=== PATIENT | female | born 1950 | race Caucasian/White ===

== ENCOUNTER → 2023-04-08 13:47 | Outpatient (CLI) | payer MEDICARE, SELFPAY ==
[2023-04-08 19:00] LABS: Basophils # 0.1 K/mm3 (0-0.2); Basophils % 0.5 % (0.1-2.0); Eosinophils # 0.2 K/mm3 (0.0-0.4); Eosinophils % 2.2 % (0.1-12.0); Hematocrit 43.3 % (37.0-47.0); Lymphocytes # 2.8 K/mm3 (0.7-4.5); Lymphocytes % 27.6 % (10-50); Mean Corpuscular HGB Conc 32.2 g/dL (31.8-35.4); Mean Corpuscular Hemoglobin 27.9 pg (27.0-31.2); Mean Corpuscular Volume 86.6 fl (81-99); Monocytes # 0.7 K/mm3 (0.1-1.0); Monocytes % 6.7 % (1.7-9.3); Neutrophils # 6.4 K/mm3 (1.8-7.8); Platelet Count 262 K/mm3 (142-424); Red Cell Distribution Width 13.4 % (11.5-17.5); White Blood Count 10.2 K/mm3 (4.8-10.8)
[2023-04-08 19:23] LABS: Alanine Aminotransferase 28 U/L (12-78); Albumin/Globulin Ratio 1.2 (1.1-1.8); Alkaline Phosphatase 87 U/L (38-126); Anion Gap 15.1 mEq/L (5-15); Aspartate Amino Transferase 30 U/L (14-36); Bilirubin,Total 0.4 mg/dl (0.2-1.3); Blood Urea Nitrogen 26 mg/dl (7-17); Calcium 9.1 mg/dl (8.4-10.2); Carbon Dioxide 25 mmol/L (22.0-30.0); Chloride 105 mmol/L (98-107); Estimated Glomerular Filt Rate 54 ml/min (>60); GFR (African American) 66 ML/MIN (>60); Globulin 3.4 g/dL (1.3-3.2); Glucose 139 mg/dl (74-100); Potassium 4.1 mmoL/L (3.5-5.1); Sodium 141 mmol/L (136-145); Total Protein,Serum 7.4 g/dl (6.3-8.2)
[2023-04-08 19:30] LABS: Hemoglobin A1C 6.7 % (4.0-6.0)
[2023-04-08 19:54] LABS: Thyroid Stimulating Hormone 1.39 uIU/mL (0.465-4.68)
== END ==
PROVIDERS: PCP Nurse Practitioner; Visit Provider Nurse Practitioner
DX: E11.9 Type 2 diabetes mellitus without complications (principal); F32.A Depression, unspecified; I10 Essential (primary) hypertension
CPT/HCPCS: 80053; 83036; 84443; 85025

== ENCOUNTER 2024-11-04 11:02 | Emergency (ER) | payer MEDICARE, SELFPAY ==
[2024-11-04] VITALS (10 sets, daily range): BP systolic 146–195; BP diastolic 47–83; PULSE 76–90; RESP 15–20; TEMP 36.7–36.9; O2SAT 93–96; BMI 42.8
--- NOTE | 2024-11-04 11:11 | XR_ITS ---
FINAL REPORT CLINICAL HISTORY: fall, pain FINDINGS: AP and lateral views of the right forearm are obtained. There is no prior exam for comparison. There is no acute osseous abnormality of the right forearm. The wrist and elbow are intact. The soft tissues appear normal. IMPRESSION: No acute osseous abnormality of the right forearm. Reviewed, Interpreted and Dictated by Selene Loving MD Transcribed by Yun Alston Authenticated and [facility]
--- NOTE | 2024-11-04 11:11 | XR_ITS ---
FINAL REPORT CLINICAL HISTORY: fall, pain FINDINGS: Right humerus Two views were obtained. Humeral head and neck fractures are again identified. No displaced fracture is seen at the distal humerus. There is no acute soft tissue abnormality. IMPRESSION: Fractures of the humeral head and neck. Reviewed, Interpreted and Dictated by Selene Loving MD Transcribed by Yun Alston Authenticated and [facility]
--- NOTE | 2024-11-04 11:11 | CT_ITS ---
FINAL REPORT TECHNIQUE: Thin section axial images were obtained through the cervical spine without contrast. Multiplanar reconstruction images were obtained from the axial data. Exam was performed using dose reduction techniques. CLINICAL HISTORY: fall, pain FINDINGS: There is no acute fracture or acute malalignment of the cervical spine. There is no evidence of unilateral or bilateral facet lock. Vertebral body height is preserved. There is multilevel degenerative disc disease, most pronounced at C5-6 and C6-7. No acute paraspinal abnormality is identified. IMPRESSION: No acute osseous abnormality of the cervical spine. Reviewed, Interpreted and Dictated by Selene Loving MD Transcribed by Yun Alston Authenticated and [facility]
--- NOTE | 2024-11-04 11:11 | XR_ITS ---
FINAL REPORT CLINICAL HISTORY: fall, pain FINDINGS: Two views of the right shoulder were obtained. There are fractures of the humeral head and neck, likely involving the greater tuberosity. No convincing dislocation is identified but there is inferior subluxation. Acromioclavicular joint is intact. IMPRESSION: Fractures of the humeral head and neck. Reviewed, Interpreted and Dictated by Selene Loving MD Transcribed by Yun Alston Authenticated and [facility]
--- NOTE | 2024-11-04 11:11 | XR_ITS ---
FINAL REPORT CLINICAL HISTORY: fall, pain FINDINGS: AP, oblique, and lateral views of the right elbow were obtained. There is no prior exam for comparison. The lateral view is limited by patient's positioning, joint effusion is not excluded. There is lucency through the sublime tubercle along the medial ulna, age-indeterminate fracture is not excluded. There is mild multijoint degenerative disease. IMPRESSION: Limited due to positioning. Lucency through the sublime tubercle along the medial ulna, age-indeterminate fracture is not excluded. Consider repeat lateral view at 90 degree flexion. Reviewed, Interpreted and Dictated by Selene Loving MD Transcribed by Yun Alston Authenticated and [facility]
--- NOTE | 2024-11-04 11:11 | CT_ITS ---
FINAL REPORT TECHNIQUE: Thin section axial images were obtained from skull base to vertex without contrast. Coronal reconstruction images were obtained from the axial data. Exam was performed using dose reduction techniques such as automated exposure control, adjustment of the mA and kV according to patient size, and use of iterative reconstruction technique. CLINICAL HISTORY: fall, pain FINDINGS: There is atrophy. No mass effect or midline shift. No intracranial hemorrhage. No hydrocephalus. Periventricular low density is likely related to changes of chronic small vessel ischemia. The basilar cisterns are preserved. There is a chronic lacunar infarct of the right basal ganglia. The posterior fossa is without acute abnormality. There is mild mucoperiosteal thickening of the left sphenoid sinus. No acute osseous abnormality is identified. IMPRESSION: No acute intracranial abnormality. Atrophy and changes suggesting chronic small vessel ischemia. Reviewed, Interpreted and Dictated by Selene Loving MD Transcribed by Yun Alston Authenticated and [facility]
--- NOTE | 2024-11-04 11:11 | XR_ITS ---
FINAL REPORT CLINICAL HISTORY: fall, pain FINDINGS: SINGLE VIEW PELVIS A single view of the pelvis was obtained. There is no acute fracture or dislocation. There is degenerative disease of the hips bilaterally. Soft tissues are unremarkable. IMPRESSION: No acute bony abnormality. Reviewed, Interpreted and Dictated by Selene Loving MD Transcribed by Yun Alston Authenticated and [facility]
--- NOTE | 2024-11-04 11:11 | XR_ITS ---
FINAL REPORT CLINICAL HISTORY: fall, pain FINDINGS: AP, lateral and oblique views of the right hand were obtained. There is no prior exam for comparison. There is no acute fracture or dislocation. There is multijoint degenerative disease, most pronounced of the interphalangeal joints. The soft tissues are normal. IMPRESSION: No acute osseous abnormality of the right hand. Reviewed, Interpreted and Dictated by Selene Loving MD Transcribed by Yun Alston Authenticated and [facility]
--- NOTE | 2024-11-04 11:11 | XR_ITS ---
FINAL REPORT CLINICAL HISTORY: fall, pain FINDINGS: AP, oblique, and lateral views of the right wrist were obtained. There is no prior exam for comparison. There is no acute fracture or dislocation. There is mild degenerative joint disease. The soft tissues are normal. IMPRESSION: No acute osseous abnormality of the right wrist. If pain persists, MR is recommended. Reviewed, Interpreted and Dictated by Selene Loving MD Transcribed by Yun Alston Authenticated and [facility]
--- NOTE | 2024-11-04 11:13 | ED_ITS ---
Discharge Plan Disposition Patient Disposition: Home, Self-Care Prescriptions Prescriptions: New oxycodone 10 mg tablet 10 mg PO Q8H PRN (Reason: pain) Qty: 10 0RF methocarbamol 750 mg tablet 750 mg PO Q8H Qty: 30 0RF acetaminophen 500 mg capsule 1,000 mg PO Q6H PRN (Reason: fever) Qty: 30 0RF lidocaine 5 % adhesive patch,medicated 1 patch topical Q24H Qty: 15 0RF Rx Instructions: leave on most painful area for up to 12 hrs No Action irbesartan-hydrochlorothiazide 300-12.5 mg tablet 1 tab PO DAILY sertraline 100 mg tablet 100 mg PO DAILY nystatin 100,000 unit/gram cream 1 applic topical TID Qty: 30 0RF Farxiga 10 mg tablet 10 mg PO DAILY Qty: 30 2RF Referrals Follow up/Referrals: Kee Hathaway DO [Staff Physician] - See instructions Provider,Referral, [Referring] - See instructions Activity Restrictions/Add. Instructions Additional Instructions/Restrictions: Wear cuff and collar at all time except when showering. Return to the ER for new or worsening symptoms. Clinical Impressions Clinical Impression: Fracture of humerus Print Language Print Language: Prydeinig Discharge ED Provider: Anila Adkins General Adult HPI General Chief complaint: Extremity Injury, Upper Stated complaint: fall Time Seen by Provider: 11/04/24 11:16 History of Present Illness HPI narrative: Patient is a 74-year-old with past medical history significant for hypertension hyperlipidemia diabetes presents to the emergency department after a fall. Patient was going down a hill tripped and fell on her right shoulder unable to get up due to significant pain of her right shoulder. Hit head but did not lose consciousness. Pain is 5 out of 10 after receiving 50 mics of fentanyl in the field. No blood thinner use Related Data Home Medications ?Medication ?Instructions ?Recorded ?Confirmed irbesartan 300 1 tab PO DAILY 04/08/23 05/02/23 mg-hydrochlorothiazide 12.5 mg tablet sertraline 100 mg tablet 100 mg PO DAILY 04/08/23 05/02/23 Previous Rx's ?Medication ?Instructions ?Recorded nystatin 100,000 unit/gram topical 1 applic topical TID #30 grams 04/08/23 cream dapagliflozin propanediol 10 mg 10 mg PO DAILY #30 tabs 05/02/23 tablet (Farxiga) acetaminophen 500 mg capsule 1,000 mg (2 x 500 mg) PO Q6H PRN 11/04/24 fever #30 caps lidocaine 5 % topical patch 1 patch topical Q24H #15 ea 11/04/24 methocarbamol 750 mg tablet 750 mg PO Q8H #30 tabs 11/04/24 oxycodone 10 mg tablet 10 mg PO Q8H PRN pain #10 tabs 11/04/24 Allergies Allergy/AdvReac Type Severity Reaction Status Date / Time No Known Allergies Allergy Verified 05/02/23 11:19 [facility] Disclaimer: The information contained in this section may have been updated after the patient was seen, as this information can be updated by other users. Medical History Rheumatoid arthritis Surgical History History of knee surgery History of partial hysterectomy Family History Mother Heart attack Brother Cancer Other Stroke Social History Smoking Status: Never smoker alcohol intake: never substance use type: denies use current occupational status: unemployed Travel in the last 8 weeks: None Have you lived/traveled outside [place] in past 30 days?: No Contact w/someone who lives/traveled outside [place] past 30 days?: No Exposure to someone with infectious disease in past 14 days?: No Do you have a fever (greater than 100.4 F or 38 C)?: No Have you tested positive for COVID-19: No Exposed to someone with COVID-19 in past 14 days?: No Do you have a sore throat?: No Do you have a cough?: No Do you have any weakness?: No Do you have any diarrhea?: No Are you experiencing any unusual bleeding?: No Do you have any muscle aches/pain?: No Do you have any abdominal pain?: No Are you experiencing loss of taste or smell?: No Other Medical History Have you received the Pneumonia Vaccine: No ROS Obtained: Yes All systems reviewed & no additional complaints except as documented Physical Exam General General appearance: alert and in no apparent distress Neck Neck exam: Absent tenderness Chest Chest inspection: Present normal inspection and symmetric chest wall rise; Absent tenderness Respiratory Respiratory exam: Present normal lung sounds bilaterally Cardiovascular Cardiovascular exam: Present regular rate and normal rhythm Abdominal Exam Abdominal exam: Present soft; Absent distention or tenderness Extremities Exam Extremities exam: Present tenderness (Right humerus right elbow, closed), normal capillary refill and other (Neurovascularly intact right upper extremity) Neurological Exam Neurological exam: Present alert and oriented X3; Absent motor sensory deficit Medical Decision Making Medical Records Screening: Per USPSTF and CDC recommendations, given the prevalence of disease in our region, it is our hospital?s policy to screen for HIV and viral Hepatitis for all patients aged 18 and over and those with ongoing risk factors. Thuan Inquiry Pt receiving controlled substance: No Vital Signs: 11/04/24 11:05 11/04/24 11:10 11/04/24 12:02 Temperature 98.4 F Temperature Source Oral Pulse Rate 90 82 Pulse Rate [Left] 90 Respiratory Rate 15 Blood Pressure 146/47 H 179/59 H Blood Pressure [Left Arm] 146/47 H Blood Pressure Mean [Left Arm] 80 Blood Pressure Source [Left Arm] Automatic Cuff Blood Pressure Position [Left Arm] Supine 02 Sat by Pulse Oximetry 93 L 94 L 93 L Oxygen Delivery Method Room Air Room Air Room Air 11/04/24 12:27 11/04/24 12:30 11/04/24 12:45 Temperature Temperature Source Pulse Rate 79 76 81 Pulse Rate [Left] Respiratory Rate Blood Pressure 195/83 H Blood Pressure [Left Arm] Blood Pressure Mean [Left Arm] Blood Pressure Source [Left Arm] Blood Pressure Position [Left Arm] 02 Sat by Pulse Oximetry 96 94 L 94 L Oxygen Delivery Method 11/04/24 13:01 11/04/24 13:30 11/04/24 14:09 Temperature Temperature Source Pulse Rate 84 82 80 Pulse Rate [Left] Respiratory Rate 18 18 20 Blood Pressure 176/79 H 176/81 H 156/60 H Blood Pressure [Left Arm] Blood Pressure Mean [Left Arm] Blood Pressure Source [Left Arm] Blood Pressure Position [Left Arm] 02 Sat by Pulse Oximetry 95 95 96 Oxygen Delivery Method Room Air Room Air Room Air Lab Data Lab Results 11/04/24 11:03: HCV Ab YO w/Rflx PCR Qn Negative, HIV Ag/Ab Combo Qual Negative Orders (Tests/Meds): ED MEDICATIONS Discontinued Medications Generic Name Dose Route Start Last Admin Trade Name Paty PRN Reason Stop Dose Admin Fentanyl Citrate 50 mcg 11/04/24 11:11 11/04/24 11:16 Fentanyl 100mcg/2ml Vial IV 11/04/24 11:12 50 mcg ONCE ONE Administration Morphine Sulfate 4 mg 11/04/24 11:53 11/04/24 11:57 Morphine 4mg/Ml Syringe IV 11/04/24 11:54 4 mg ONCE ONE Administration ORDERS Category Date Time Status CT cervical spine wo con Stat Cat Scan 11/04/24 11:[address] head/brain wo con Stat Cat Scan 11/04/24 11:[address] shoulder RT wo con Stat Cat Scan 11/04/24 12:10 Completed XR elbow RT 2V Stat Exams 11/04/24 13:47 Completed XR elbow RT min 3V Stat Exams 11/04/24 11:11 Completed XR forearm RT 2V Stat Exams 11/04/24 11:11 Completed XR hand RT min 3V Stat Exams 11/04/24 11:11 Completed XR humerus RT Stat Exams 11/04/24 11:11 Completed XR pelvis 1-2V Stat Exams 11/04/24 11:11 Completed XR shoulder RT min 2V Stat Exams 11/04/24 11:11 Completed XR wrist RT min 3V Stat Exams 11/04/24 11:11 Completed HIV Combo Stat Lab 11/04/24 11:03 Completed Hepatitis C Ab Qual. W/ RFX Stat Lab 11/04/24 11:03 Completed Medical Decision Narrative: In summary, this 74-year-old female presents to the emergency department today with fall with right arm pain. On initial evaluation patient is hemodynamically stable saturating appropriately on room air afebrile no acute distress. Differential diagnosis includes but is not limited to acute fracture dislocation neurovascular injury intracranial hemorrhage cervical spine injury. Based on these concerns, I ordered CT head CT C-spine right upper extremity films chest x-ray pelvis x-ray. Patient received 50 mics of fentanyl and morphine for treatment. XR personally interpreted demonstrates right proximal humerus displaced fracture CT imaging personally interpreted demonstrate no ICH, no c spine fx, fracture of the right humeral head and neck extending into the glenohumeral joint. I had an interactive discussion with Dr. Hathaway with orthopedic surgery who recommended performing CT of the right shoulder and outpatient follow-up with cuff and Collar On reassessment patient's pain is controlled with cuff and collar amendable to discharge at this time with outpatient follow-up with Dr. Hathaway or orthopedic surgeon of her choice as she does live in [facility]. Of note, social determinants of health include lives far away. Critical Care Critical Care Time Critical Care Time: No
[2024-11-04] MEDS: FENTANYL 100MCG/2ML VIAL 50 MCG IV (11:16)
--- NOTE | 2024-11-04 11:22 | PC.NURSE ---
pt currently going for CT
[2024-11-04] MEDS: MORPHINE 4MG/ML SYRINGE 4 MG IV (11:57)
--- NOTE | 2024-11-04 12:10 | CT_ITS ---
FINAL REPORT TECHNIQUE: Thin section axial images were obtained through the right shoulder without contrast. Reconstruction images were obtained from the axial data. Exam was performed using dose reduction technique. This study was performed with techniques to keep radiation doses as low as reasonably achievable (ALARA). Individualized dose reduction techniques using automated exposure control or adjustment of mA and/or kV according to the patient's size were employed. CLINICAL HISTORY: right shoulder pain COMPARISON: None FINDINGS: There is a comminuted fracture of the right humeral head and neck. The fracture line extends to the joint. No acromioclavicular separation is identified. A joint effusion is present. There is surrounding hematoma at the fracture site. Note is made of several small nodules in the right upper lobe, that may be infectious or inflammatory. Would consider nonemergent CT of the chest for follow-up. IMPRESSION: Comminuted fracture of the right humeral head and neck, with the fracture line extending to the glenohumeral joint. A joint effusion and surrounding hematoma is present. Several small nodules in the right upper lobe, that may be infectious or inflammatory. Consider nonemergent CT for follow-up. Reviewed, Interpreted and Dictated by Selene Loving MD Transcribed by Alycia Vidales Authenticated and [facility]
[2024-11-04 12:27] LABS: Hepatitis C Ab Qual. W/ RFX NEGATIVE (Negative)
[2024-11-04 12:33] LABS: HIV Combo NEGATIVE (Negative)
--- NOTE | 2024-11-04 13:47 | XR_ITS ---
FINAL REPORT CLINICAL HISTORY: fall, repeat initial non diagnostic FINDINGS: Right elbow Single lateral view was obtained. No joint effusion is identified. No fracture is visualized. IMPRESSION: No acute process. Reviewed, Interpreted and Dictated by Selene Loving MD Transcribed by Yun Alston Authenticated and [facility]
== END 2024-11-04 15:08 | disposition home or self-care (01) ==
PROVIDERS: Emergency Provider Student in an Organized Health Care Education/Training Program; PCP Family Medicine
DX: S42.291A Other displaced fracture of upper end of right humerus, initial encounter for closed fracture (principal); W17.81XA Fall down embankment (hill), initial encounter
CPT/HCPCS: 70450; 72125; 72170; 73030; 73060; 73070; 73080; 73090; 73110; 73130; 73200; 86803; 87389; 96374; 96375; 99285; J2270; J3010